=== PATIENT | female | born 1940 | race Caucasian/White ===

== ENCOUNTER 2018-10-29 19:15 | Emergency (ER) | payer MEDICARE, OTHER ==
[~2018-10-29] VITALS: Ht 170.2 cm; Wt 61.4 kg
[2018-10-29 19:20] VITALS: BP 152/82; TEMP 97.8
[2018-10-29] MEDS ORDERED: MOBIC 7.5MG7.5 MG PO (19:37)
[2018-10-29 20:48] VITALS: PULSE 71
== END 2018-10-29 20:50 | disposition home or self-care (01) ==
LOC: COL.ER 19:15
DX: S83.91XA Sprain of unspecified site of right knee, initial encounter (principal); Z88.2 Allergy status to sulfonamides; W10.9XXA Fall (on) (from) unspecified stairs and steps, initial encounter; X50.0XXA Overexertion from strenuous movement or load, initial encounter
CPT/HCPCS: L1846

== ENCOUNTER 2019-01-17 12:38 | Emergency (ER) | payer MEDICARE, OTHER ==
[~2019-01-17] VITALS: Ht 170.2 cm; Wt 62.7 kg
[~2019-01-17 12:38] MED LIST: MOBIC 7.5MG7.5 MG PO
[2019-01-17 12:46] VITALS: TEMP 97
[2019-01-17 15:32] LABS: BASO % 0.2 % (0.0-2.0); EOS % 0.1 % (0-4.0); GRAN # 11.4 (1.4-6.5); GRAN % 59.6 % (42.2-75.2); HEMATOCRIT 38.8 % (37.0-47.0); HEMOGLOBIN 12.7 g/dl (12.5-16.0); LYMPH # 5.8 (1.2-3.4); LYMPH % 30.1 % (20.0-51.0); MEAN CELL VOLUME 94 fl (80.0-100.0); MEAN CORPUSCULAR HEMOGLOBIN 31 pg (27.0-31.0); MEAN CORPUSCULAR HGB CONC 33 g/dl (33.0-37.0); MEAN PLATELET VOLUME 9.8 fl (7.4-10.4); MONO # 1.8 (0.1-0.6); MONO % 9.4 % (1.7-9.3); PLATELET COUNT 334 K/mm3 (130-400); RED BLOOD COUNT 4.11 M/mm3 (4.10-5.30); REDCELL DISTRIBUTION WIDTH-CV 13.9 % (11.5-14.5)
[2019-01-17 15:46] LABS: ALBUMIN 3.5 gm/dL (3.5-5.0); C-REACTIVE PROTEIN 5.2 mg/dL (0.0-0.9); CALCIUM 8.9 mg/dL (8.4-10.2); CREATININE, serum 0.5 (0.52-1.25); TOTAL PROTEIN 6.5 gm/dL (6.4-8.2)
[2019-01-17 16:06] LABS: COLLECTION METHOD CATHETER
[2019-01-17 16:34] LABS: MUCOUS Present /lpf; PH 6 (5-8); SQUAMOUS EPITHELIAL None Seen /hpf; URINE APPEARANCE Clear; URINE BACTERIA Rare /hpf; URINE BILIRUBIN Negative (NEGATIVE); URINE BLOOD 1+ (NEGATIVE); URINE COLOR Amber; URINE GLUCOSE Negative (NEGATIVE); URINE KETONE 1+ (NEGATIVE); URINE LEUKOCYTE ESTERASE Trace (NEGATIVE); URINE NITRATE Negative (NEGATIVE); URINE PROTEIN(semi-quant) Negative (NEGATIVE); URINE UROBILINOGEN >=4.0 mg/dL (NEGATIVE)
[2019-01-17 18:00] VITALS: BP 127/64; PULSE 98
== END 2019-01-17 18:05 | disposition home or self-care (01) ==
LOC: COL.ER 12:38
PROVIDERS: Emergency Medicine
DX: K59.00 Constipation, unspecified (principal); Z90.49 Acquired absence of other specified parts of digestive tract; Z87.39 Personal history of other diseases of the musculoskeletal system and connective tissue
CPT/HCPCS: J7030